=== PATIENT | female | born 1950 | race Caucasian/White ===

== ENCOUNTER 2021-12-01 09:27 | Outpatient (CLI) | payer MEDICARE | END 2021-12-01 09:28 | disposition home or self-care (01) | LOC: LABBT 09:27 | PROVIDERS: ATTEND Orthopaedic Surgery | DX: Z01.818 Encounter for other preprocedural examination (principal); M16.11 Unilateral primary osteoarthritis, right hip; J98.6 Disorders of diaphragm | CPT/HCPCS: 71046; 80048; 81003; 85025; 85610; 86850; 86900; 86901; 87081; 93005; U0003; U0005; 93010 ==

== ENCOUNTER 2021-12-06 05:33 | Observation (INO) | payer MEDICARE ==
[2021-12-01 10:04] LABS: Bilirubin Neg (Negative); Blood, Urine 50 (Negative); Clarity Clear (Clear); Glucose, Urine (Dipstick) >=1000 mg/dL (Negative); Ketone, Urine Negative (Negative); Leukocyte 25 (Negative); Nitrite Negative (Negative); Protein, Urine (Dipstick) 30 mg/dl (Neg-Trace); Urobilinogen Normal mg/dL (Less than 2)
[2021-12-01 10:53] LABS: #Basophils 0.1 10x3/uL (0.0-0.2); #Eosinphils 0.1 10x3/uL (0.0-0.5); #Monocytes 0.6 10x3/uL (0.0-1.1); #Neutrophils 5.5 10x3/uL (1.5-8.4); %Basophils 0.7 % (0.0-2.0); %Eosinophils 1.5 % (0.0-6.0); %Lymphocytes 22.5 % (18.0-47.0); %Monocytes 7.4 % (0.0-10.0); %Neutrophils 67.7 % (40.0-75.0); Hemoglobin 12.6 g/dL (12.0-15.5); Mean Corpuscular HGB CONC 32.1 g/dL (32.0-36.0); Mean Corpuscular Hemoglobin 27.1 pg (27.0-33.0); Mean Corpuscular Volume 84.3 fl (81.6-98.3); Platelet Count 262 10x3/uL (150-450); RBC Distribution Width 14.6 % (11.5-14.5); Red Blood Cell (RBC) Count 4.65 10x6/uL (3.90-5.03); White Blood Cell (WBC) Count 8.2 10x3/uL (3.5-10.5)
[2021-12-01 11:06] LABS: Prothrombin Time 10.5 sec (9.5-12.1)
[2021-12-01 11:07] LABS: Anion Gap 17 mmol/L (10-20); BUN (Urea Nitrogen) 33 mg/dL (9.8-20.1); Calc. Creatinine Clearance 0 mL/min (70-130); Calcium 10.8 mg/dL (7.8-10.44); Carbon Dioxide 23 mmol/L (23-31); Chloride 104 mmol/L (98-107); Glucose 124 mg/dL (80-115); Potassium 4.8 mmol/L (3.5-5.1); Sodium 139 mmol/L (136-145)
[2021-12-01 13:13] VITALS: BMI 28.2
[2021-12-06] MEDS ORDERED: Sodium Chloride 0.9% 100 ML ONE ×2 (06:01→06:55)
[2021-12-06] MEDS ORDERED: Tranexamic Acid 1,000 MG/10 ML VIAL ONE (06:01)
[2021-12-06] MEDS ORDERED: Vancomycin 1 GM in Premix Bag 1 BAG IVPB SCH ×2 (06:15→18:00)
[2021-12-06] MEDS ORDERED: CEFAZOLIN 2 GM in Sodium Chloride 0.9% 100 ML IVPB SCH (06:15)
[2021-12-06] MEDS ORDERED: Bupivacaine 0.25% HCL 30 ML VIAL ONE (06:21)
[2021-12-06] MEDS ORDERED: Fentanyl 100 MCG/2 ML VIAL ONE (06:31)
[2021-12-06] MEDS ORDERED: fentaNYL Citrate/PF 100 MCG/2 ML SYRINGE ONE (06:31)
[2021-12-06] MEDS ORDERED: Midazolam HCl 2 mg/2 ml Vial ONE (06:31)
[2021-12-06] MEDS ORDERED: Lidocaine 1% (PF) 30 ML VIAL ONE (06:48)
[2021-12-06] MEDS ORDERED: CEFAZOLIN 2 GM VIAL ONE (06:55)
[2021-12-06] MEDS ORDERED: Ropivacaine 0.5% HCl/PF (150 MG/30 ML VIAL) ONE (07:17)
[2021-12-06] MEDS ORDERED: Lidocaine 1% PF 5 ML VIAL ONE (07:17)
[2021-12-06] MEDS ORDERED: ePHEDrine 50 MG/ML VIAL ONE (07:17)
[2021-12-06] MEDS ORDERED: PROPOFOL 200 MG/20 ML VIAL ONE (07:17)
[2021-12-06] MEDS ORDERED: Ketorolac Tromethamine 30 MG/ML VIAL ONE (07:17)
[2021-12-06] MEDS ORDERED: Ondansetron PF 4 MG/2 ML Vial ONE (07:17)
[2021-12-06] MEDS ORDERED: Glycopyrrolate 0.2 MG/ML 5 ML SYRINGE ONE (07:17)
[2021-12-06] MEDS ORDERED: Phenylephrine 10 MG/ML VIAL ONE (07:17)
[2021-12-06] MEDS ORDERED: Promethazine HCl 25 MG/ML VIAL IM PRN ×3 (07:26→09:04)
[2021-12-06] MEDS ORDERED: Fentanyl 100 MCG/2 ML VIAL SLOW IVP PRN (07:26)
[2021-12-06] MEDS ORDERED: HYDROcodone/Acetaminophen 10/325 mg Tablet PO PRN ×4 (07:26→08:15)
[2021-12-06] MEDS ORDERED: diphenhydrAMINE 25 MG CAP PO PRN (07:26)
[2021-12-06] MEDS ORDERED: traMADol HCl 50 MG TAB PO PRN ×3 (07:26→08:15)
[2021-12-06] MEDS ORDERED: Ondansetron PF 4 MG/2 ML Vial IVP PRN ×2 (07:26→08:15)
[2021-12-06] MEDS ORDERED: Zolpidem Tartrate 5 MG TAB PO PRN ×2 (07:26→08:15)
[2021-12-06] MEDS ORDERED: Acetaminophen 325 MG TAB PO PRN (07:26)
[2021-12-06] MEDS ORDERED: Fentanyl 100 MCG/2 ML VIAL IV PRN (08:05)
[2021-12-06] MEDS ORDERED: Ropivacaine 0.2% 550 ML 550 ML NERVE BLCK SCH (08:15)
[2021-12-06] MEDS ORDERED: Non-Formulary Item 1 EACH (Metformin Hcl [Metformin Hcl] 1,000 MG Tablet) PO SCH (09:00)
[2021-12-06] MEDS ORDERED: Promethazine HCl 25 MG/ML VIAL IVPB PRN (09:04)
[2021-12-06] MEDS ORDERED: Ondansetron HCl/PF 4 MG/2 ML Vial IVP PRN (09:04)
[2021-12-06] MEDS: Aspirin 81 mg Enteric Coated Tablet PO SCH ×2 (11:21→21:11)
[2021-12-06] MEDS: Sodium Chloride 0.9% 1,000 ML IV SCH ×2 (11:21→17:15)
[2021-12-06] MEDS: CeleCOXIB 100 MG CAP PO SCH (11:21)
[2021-12-06] MEDS: metFORMIN 500 MG TAB PO SCH ×2 (11:21→17:36)
[2021-12-06] MEDS: Senokot S 8.6-50 MG TAB PO SCH ×2 (11:22→21:12)
[2021-12-06] MEDS: Empagliflozin 25 MG TAB PO SCH (11:22)
[2021-12-06] MEDS: Multivitamin W/ Minerals 1 TAB PO SCH (11:22)
[2021-12-06] MEDS: Ferrous Gluconate 324 MG TAB PO SCH ×2 (11:22→21:11)
[2021-12-06] MEDS: Lisinopril 20 MG TAB PO SCH (11:22)
[2021-12-06] MEDS: Glimepiride 4 MG TAB PO SCH ×2 (11:22→21:11)
[2021-12-06] MEDS ORDERED: Ketorolac Tromethamine 30 MG/ML VIAL IVP SCH (12:00)
[2021-12-06] MEDS: CEFAZOLIN 2 GM in Sodium Chloride 0.9% 100 ML IVPB SCH ×2 (14:16→21:12)
[2021-12-06] MEDS: Ketorolac Tromethamine 30 MG/ML VIAL IVP SCH ×2 (14:16→21:11)
[2021-12-06] MEDS ORDERED: HumaLOG 300 UNITS/3 ML VIAL SC PRN (17:09)
[2021-12-06] MEDS ORDERED: Dextrose 5% in Water 1,000 ML IV PRN (17:09)
[2021-12-06] MEDS ORDERED: Dextrose 50% Abboject 50 ML SYRINGE SLOW IVP PRN (17:09)
[2021-12-06] MEDS: HumaLOG 300 UNITS/3 ML VIAL SC PRN (17:33)
[2021-12-06 17:54] LABS: Anion Gap 13 mmol/L (10-20); BUN (Urea Nitrogen) 28 mg/dL (9.8-20.1); Calc. Creatinine Clearance 46 mL/min (70-130); Calcium 8.9 mg/dL (7.8-10.44); Carbon Dioxide 21 mmol/L (23-31); Chloride 103 mmol/L (98-107); Glucose 210 mg/dL (80-115); Potassium 4.8 mmol/L (3.5-5.1); Sodium 132 mmol/L (136-145)
[2021-12-06] MEDS ORDERED: Rosuvastatin 20 MG TAB PO SCH (21:00)
[2021-12-06] MEDS ORDERED: Non-Formulary Item 1 EACH (Rosuvastatin Calcium [Crestor] 40 MG Tablet) PO SCH (21:00)
[2021-12-07] MEDS: Ketorolac Tromethamine 30 MG/ML VIAL IVP SCH ×3 (02:02→16:08)
[2021-12-07] MEDS: Sodium Chloride 0.9% 1,000 ML IV SCH ×2 (02:07→12:37)
[2021-12-07 06:09] LABS: Hemoglobin 9.9 g/dL (12.0-16.0); Mean Corpuscular HGB CONC 31.1 g/dL (32.0-36.0); Mean Corpuscular Hemoglobin 27.1 pg (27.0-31.0); Mean Corpuscular Volume 87.1 fL (78.0-98.0); Mean Platelet Volume 7.2 fL (7.4-10.4); Platelet Count 188 thou/uL (130-400); RBC Distribution Width 13.9 % (11.5-14.5); Red Blood Cell (RBC) Count 3.63 mill/uL (4.20-5.40)
[2021-12-07] MEDS: HumaLOG 300 UNITS/3 ML VIAL SC PRN (06:09)
[2021-12-07] MEDS: Ferrous Gluconate 324 MG TAB PO SCH (08:31)
[2021-12-07] MEDS: Multivitamin W/ Minerals 1 TAB PO SCH (08:31)
[2021-12-07] MEDS: Glimepiride 4 MG TAB PO SCH (08:31)
[2021-12-07] MEDS: Senokot S 8.6-50 MG TAB PO SCH (08:31)
[2021-12-07] MEDS: Empagliflozin 25 MG TAB PO SCH (08:31)
[2021-12-07] MEDS: metFORMIN 500 MG TAB PO SCH (08:32)
[2021-12-07] MEDS: CeleCOXIB 100 MG CAP PO SCH (08:51)
[2021-12-07] MEDS ORDERED: Aspirin 81 mg Enteric Coated Tablet PO SCH (09:00)
[2021-12-07] MEDS: Lisinopril 20 MG TAB PO SCH (10:15)
[2021-12-07 17:49] VITALS: BP 140/86; TEMP 99.4
== END 2021-12-07 17:00 | disposition home health service (06) ==
LOC: SDC 05:33 → SURG B 07:26 → EDSTATUS 10:00
PROVIDERS: ADMIT Orthopaedic Surgery; ATTEND Orthopaedic Surgery
PROC: 0SRC0J9 Replacement of Right Knee Joint with Synthetic Substitute, Cemented, Open Approach (ICD-10-PCS; principal; 2021-12-06)
PROC: 8E0YXBZ Computer Assisted Procedure of Lower Extremity (ICD-10-PCS; 2021-12-06)
PROC: 3E0T3BZ Introduction of Anesthetic Agent into Peripheral Nerves and Plexi, Percutaneous Approach (ICD-10-PCS; 2021-12-06)
DX: M17.0 Bilateral primary osteoarthritis of knee (principal); I12.9 Hypertensive chronic kidney disease with stage 1 through stage 4 chronic kidney disease, or unspecified chronic kidney disease; E11.22 Type 2 diabetes mellitus with diabetic chronic kidney disease; N18.30 Chronic kidney disease, stage 3 unspecified; N17.9 Acute kidney failure, unspecified; E78.5 Hyperlipidemia, unspecified; I25.10 Atherosclerotic heart disease of native coronary artery without angina pectoris; I25.2 Old myocardial infarction; I08.0 Rheumatic disorders of both mitral and aortic valves; Z79.82 Long term (current) use of aspirin; Z79.84 Long term (current) use of oral hypoglycemic drugs; Z79.899 Other long term (current) drug therapy; Z95.1 Presence of aortocoronary bypass graft; Z95.5 Presence of coronary angioplasty implant and graft; Z20.822 Contact with and (suspected) exposure to COVID-19
CPT/HCPCS: 20985; 27447; 64448; 80048 ×2; 81003; 82962 ×2; 85025; 85027; 85610; 86850; 86900; 86901; 87081; 96374; 96375; 96376 ×2; 97110 ×2; 97116 ×2; 97139; A4306; C1713; C1776; G0378 ×2; U0003; U0005; 36415; 36416; J0690; J1815; J1885; J2001; J2250; J2370; J2405; J2704; J2795; J3010; J3370; J3490; S0020